=== PATIENT | male | born 1970 | race Caucasian/White ===

== ENCOUNTER 2022-05-16 09:08 | Emergency (ER) | payer OTHER ==
[~2022-05-16] VITALS: Ht 172.7 cm; Wt 60.8 kg
[2022-05-16 09:34] VITALS: BP 127/71
[2022-05-16] MEDS ORDERED: ALBU0.0912 INH (11:09)
[2022-05-16] MEDS ORDERED: BENZ150C2 PO ×2 (11:09→11:30)
[2022-05-16] MEDS ORDERED: ALBU0.0912 IH (11:30)
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
--- NOTE | 2022-05-16 11:44 | NUR ---
Patient discharged with v/s stable. Written and verbal after care instructions ABOUT VIRAL ILLNESS given and explained. Patient alert, oriented and verbalized understanding of instructions. Ambulatory with steady gait. All questions addressed prior to discharge. ID band removed. Patient advised to follow up with PMD. Rx of ALBUTEROL, BENZONATATE given. Patient educated on indication of medication including possible reaction and side effects. Opportunity to ask questions provided and answered.
== END 2022-05-16 11:44 | disposition home or self-care (01) ==
LOC: MED 09:08
DX: B34.9 Viral infection, unspecified (principal); Z20.822 Contact with and (suspected) exposure to COVID-19; Z79.899 Other long term (current) drug therapy
CPT/HCPCS: 71045; 99284

== ENCOUNTER 2023-09-11 11:21 | Emergency (ER) | payer OTHER ==
[~2023-09-11] VITALS: Ht 172.7 cm; Wt 68.0 kg
[~2023-09-11 11:21] MED LIST: ALBU0.0912 IH; BENZ150C2 PO
[2023-09-11 11:32] VITALS: BP 123/75; PULSE 90; RESP 20; TEMP 97.2; O2SAT 98
[2023-09-11] MEDS ORDERED: IBUP-2218 PO (12:12)
[2023-09-11] MEDS ORDERED: ALBU0.0912 IH (12:12)
[2023-09-11] MEDS ORDERED: AMOX-999 PO (12:12)
[2023-09-11 12:19] VITALS: BP 134/89; PULSE 88; RESP 15; TEMP 97.2; O2SAT 98
== END 2023-09-11 12:19 | disposition home or self-care (01) ==
LOC: MED 11:21
DX: K08.89 Other specified disorders of teeth and supporting structures (principal); J45.909 Unspecified asthma, uncomplicated; F17.200 Nicotine dependence, unspecified, uncomplicated; Z71.6 Tobacco abuse counseling; Z79.899 Other long term (current) drug therapy
CPT/HCPCS: 99283